=== PATIENT | female | born 1960 | race Caucasian/White ===

== ENCOUNTER 2016-06-15 09:25 | Outpatient (CLI) | payer OTHER ==
[2016-06-15] VITALS (9 sets, daily range): BP systolic 99–137; BP diastolic 61–85
[~2016-06-15] VITALS: Ht 162.6 cm; Wt 107.4 kg
--- NOTE | ~2016-06-15 | EKG ---
[place] [address] [facility] [place] [employer] [place] [address] ELECTROCARDIOGRAM REPORT Name: IDALIA NUÑEZ Room #: REG CLI [facility]#: [id number] Admission: 06/15/16 Attend Phys: Solis Reynoso MD Discharge: Date of : 62 Report #: [id number] THIS REPORT FOR: //name// [facility] Test Date: 2016-06-15 Test Time: 09:45:21 Pat Name: IDALIA NUÑEZ Department: Room: Gender: F Feather Shaper: Dre MOSCOSO : 1960 Requested By: Solis Reynoso Order Number: [id number] MD: Bud Coughlin Measurements Intervals Erhard Rate: 71 P: 51 NJ: 150 QRS: -7 QRSD: 104 T: 40 QT: 402 QTc: 437 Interpretive Statements Sinus rhythm Poor R-wave progression No previous ECG available for comparison Electronically Signed On 06-15-2016 10:24:20 TABLE SETTER by Bud Coughlin [email or web address] <ELECTRONICALLY SIGNED> By: Bud Coughlin MD, [facility] 06/15/16 1024 0945 0945 Bud Coughlin MD, FAC /EPI
--- NOTE | ~2016-06-15 | CATHLAB ---
[facility] [employer] [address] INVASIVE PROCEDURE REPORT Name: IDALIA NUÑEZ Room #: 200-I [facility]#: [id number] Admission: 06/15/16 Attend Phys: Solis Reynoso MD Discharge: Date of : 62 Date of Service: 06/15/16 1331 Report #: [id number] THIS REPORT FOR: //name// CC: Azeem Reynoso DATE OF SERVICE: 06/15/2016 INDICATIONS: Unstable angina/dyspnea. Full risks, benefits and alternatives of cardiac catheterization were explained to the patient. All questions were answered. Informed consent was obtained. The right groin area was prepped and draped in a sterile manner. Lidocaine was given subcutaneously. A 4-Honduran sheath was inserted into the right femoral artery via modified Seldinger technique. A 7-Honduran sheath was inserted into the right femoral vein via modified Seldinger technique. RIGHT HEART PRESSURES: Please see the cardiovascular lab director computed sheet for full details. 1. The mean right atrial pressure is 10, the RV pressure is 39/12, the PA pressure is approximately 40/17 mmHg. 2. The mean capillary wedge pressure is 13. 3. Cardiac output via Eda is 3.59. LEFT HEART CARDIAC CATHETERIZATION: CORONARY ANATOMY: 1. The left main is a large caliber vessel, with no flow-limiting lesions. 2. The LAD is a moderate sized caliber vessel, traveled down the anterior wall and wraps around the apex. In the proximal segment, there is a moderate stenosis 50-60%. 3. Within the mid segment of the LAD, there is mild diffuse disease, 30%. 4. The left circumflex artery is a moderate size caliber vessel, giving off 1 moderate size obtuse marginal artery. There is mild disease within the mid segment of the left circumflex artery, 30%. 5. The RCA is a dominant vessel. There is a total occlusion of the RCA in the proximal segment. 6. A left ventriculogram was performed revealing normal LV systolic function, ejection fraction of 60%. The LVEDP is approximately 14 mmHg. There is no gradient across the outflow tract. CORONARY ANGIOPLASTY: A 6-Honduran was used and the patient was given Angiomax. Attempts at crossing the total proximal RCA occlusion was unsuccessful. A Luge wire and a Whisper wire was used. An over the wire balloon system was used as backup. At the end of the procedure, coronary injections revealed no change in the appearance of the [place] RCA. The patient tolerated the procedure without any complications. [address] [address] INVASIVE PROCEDURE REPORT Name: IDALIA NUÑEZ Room #: 200-I [facility]#: [id number] Admission: 06/15/16 Attend Phys: Solis Reynoso MD Discharge: Date of : 62 Date of Service: 06/15/16 1331 Report #: [id number] IMPRESSION: 1. 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 Unsuccessful angioplasty secondary to inability to cross the lesion with a wire. 2. Moderate disease in the proximal left anterior descending. 3. Normal left ventricular systolic function. 4. Right-sided heart pressures as described above. 5. Recommend revascularization of the right coronary artery. <ELECTRONICALLY SIGNED> By: Solis Reynoso MD 06/16/16 0833 1331 1652 Solis Reynoso MD /nt
--- NOTE | ~2016-06-15 | D ---
[facility] [place] [address] DISCHARGE SUMMARY Name: IDALIA NUÑEZ Room #: DEP [facility]#: [id number] Admission: 06/15/16 Attend Phys: Solis Reynoso MD Discharge: 06/16/16 Date of : 62 Report #: [id number] THIS REPORT FOR: //name// CC: Azeem Reynoso DATE OF SERVICE: 06/16/2016 FINAL DIAGNOSES: 1. Angina/coronary artery disease. 2. Hypertension. 3. Mild chronic obstructive pulmonary disease/bronchitis. 4. Hypercholesterolemia. 5. Gastroesophageal reflux disease. 6. Edema. HOSPITAL COURSE: Please see the original H and P for full details. The patient presented with dyspnea and chest discomfort with exertion. An echocardiogram at [facility] revealed normal LV systolic function and increased pulmonary artery pressures. She underwent an elective cardiac catheterization. The right heart cardiac catheterization revealed mild elevation in pulmonary artery pressures and no evidence for a shunt. She was found to have severe coronary artery disease. There was a total occlusion of the dominant RCA. After the occlusion, the RCA is filled via collateral circulation. There is a [id number] stenosis in the proximal LAD. Her LV systolic function is preserved. Angioplasty was unsuccessful secondary to inability to cross the total occlusion with a wire. The patient has remained hemodynamically stable overnight. Both the artery and ventricular sheaths were pulled manually yesterday. She has not had any issues with bleeding. The plan is to refer the patient to a different facility for percutaneous approach of the chronic total occlusion, possibly retrograde. Final disposition, she will continue with lisinopril 20 mg daily, omeprazole 40 mg daily, Naprosyn, Zoloft, lovastatin 20 mg daily, Xanax as needed, Lasix 40 mg daily, inhalers and aspirin once a day. She is also given instructions for followup appointment. <ELECTRONICALLY SIGNED> By: Solis Reynoso MD 06/17/16 0758 0841 0855 Solis Reynoso MD /nt
[2016-06-15] MEDS ORDERED: LISINOPRIL20 MG PO (09:41)
[2016-06-15] MEDS ORDERED: OMEPRAZOLE 20 M20 MG PO (09:41)
[2016-06-15] MEDS ORDERED: NAPROSYN500 MG PO (09:43)
[2016-06-15] MEDS ORDERED: ZOLOFT50 MG PO (09:43)
[2016-06-15] MEDS ORDERED: LOVASTATIN 20 M20 MG PO (09:44)
[2016-06-15] MEDS ORDERED: LASIX 40 MG TAB40 M2 PO (09:45)
[2016-06-15] MEDS ORDERED: PERCOCET 10-321 EACH PO (09:45)
[2016-06-15] MEDS ORDERED: XANAX1 MG PO (09:45)
[2016-06-15] MEDS ORDERED: BREO ELLIPTA 11 EACH IH (09:50)
[2016-06-15] MEDS ORDERED: CLARITIN-D 12 H1 TA1 PO (09:51)
[2016-06-15] MEDS ORDERED: ANTIVERT25 MG PO (09:51)
[2016-06-15] MEDS ORDERED: AMBIEN 5 MG TABL5 M1 PO (09:52)
[2016-06-15] MEDS ORDERED: LIDODERM 5%1 PATC1 TRANSDERM (09:52)
[2016-06-15] MEDS ORDERED: PROAIR HFA8.5 GM INH (09:55)
[2016-06-15 10:02] LABS: HEMATOCRIT 41.1 % (37.0-47.0); HEMOGLOBIN 14.1 gm/dL (12.0-15.0); MCH 31.1 pg (26.0-34.0); MCHC 34.4 % (28.0-37.0); MCV 90.4 fL (80.0-100.0); RBC 4.55 mil/uL (4.20-5.00); RDW 13.9 % (10.5-14.5); WBC 10.1 thou/uL (4.0-11.0)
[2016-06-15 10:09] LABS: CALCIUM 9.3 mg/dL (8.5-10.1); POTASSIUM 3.6 mmol/L (3.5-5.1)
[2016-06-15 11:52] LABS: ABG SAMPLE TYPE ARTERIAL; BE(vivo) -1.3 mmol/L (-2 to +3); HCO3 22.9 mmol/L (22.0-26.0); LACTATE 0.98 mmol/L (0.5-2.0); O2(CT) 17.9 mL/dL (15.0-23.0); O2Hb 92.1 % (92.0-98.0); PCO2 36.8 mmHg (35.0-45.0); PO2 71.9 mmHg (80.0-100.0); pH 7.412 (7.360-7.450); sO2 94.7 % (92.0-98.0)
[2016-06-15 11:54] LABS: ABG SAMPLE TYPE ARTERIAL; HCO3 24.1 mmol/L (22.0-26.0); LACTATE 0.98 mmol/L (0.5-2.0); O2(CT) 12.9 mL/dL (15.0-23.0); PCO2 41.5 mmHg (35.0-45.0); pH 7.382 (7.360-7.450); sO2 65.4 % (92.0-98.0); tCO2 25.4 mmol/L (24.0-30.0)
[2016-06-15 11:56] LABS: FIO2 21 %; STICK SITE AO
[2016-06-15 11:56] LABS: FIO2 21 %; PO2 34.6 mmHg (80.0-100.0); STICK SITE PA
[2016-06-16 03:04] VITALS: BP 125/75
[2016-06-16 03:33] VITALS: BP 124/74
[2016-06-16 03:33] LABS: HEMATOCRIT 36.4 % (37.0-47.0); HEMOGLOBIN 12.5 gm/dL (12.0-15.0); MCH 31.6 pg (26.0-34.0); MCHC 34.2 % (28.0-37.0); MCV 92.5 fL (80.0-100.0); RBC 3.94 mil/uL (4.20-5.00); RDW 13.9 % (10.5-14.5); WBC 8.4 thou/uL (4.0-11.0)
[2016-06-16 03:39] LABS: CALCIUM 8.8 mg/dL (8.5-10.1); CREATININE 0.8 mg/dL (0.6-1.3); POTASSIUM 3.6 mmol/L (3.5-5.1)
[2016-06-16 07:15] VITALS: BP 122/67
[2016-06-16] MEDS ORDERED: ASPIR 8181 MG PO (08:35)
[2016-06-16 09:56] VITALS: BP 122/67
[2016-06-16 17:07] VITALS: BP 122/67
[2016-06-25] MEDS ORDERED: EFFIENT10 MG PO (10:02)
[2016-06-26] MEDS ORDERED: ATORVASTATIN CA40 MG PO (08:18)
[2016-06-26] MEDS ORDERED: METOPROLOL SUCC25 M1 PO (08:18)
== END 2016-06-16 10:34 | disposition home or self-care (01) ==
LOC: CATH 09:25 → 2N 15:23 → CATH 06-16 10:34
PROVIDERS: Internal Medicine Cardiovascular Disease
DX: I20.0 Unstable angina (principal); Z90.49 Acquired absence of other specified parts of digestive tract; J45.909 Unspecified asthma, uncomplicated; I27.2 Other secondary pulmonary hypertension; I10 Essential (primary) hypertension; K21.9 Gastro-esophageal reflux disease without esophagitis; M17.9 Osteoarthritis of knee, unspecified; Z86.14 Personal history of Methicillin resistant Staphylococcus aureus infection; F17.210 Nicotine dependence, cigarettes, uncomplicated; I48.91 Unspecified atrial fibrillation
CPT/HCPCS: 10081

== ENCOUNTER → 2017-08-23 | Outpatient (CLI) | payer OTHER ==
[~2017-08-23] MED LIST: AMBIEN 5 MG TABL5 M1 PO; ANTIVERT25 MG PO; ASPIR 8181 MG PO; ATORVASTATIN CA40 MG PO; BREO ELLIPTA 11 EACH IH; CLARITIN-D 12 H1 TA1 PO; EFFIENT10 MG PO; LASIX 40 MG TAB40 M2 PO; LIDODERM 5%1 PATC1 TRANSDERM; LISINOPRIL20 MG PO; LOVASTATIN 20 M20 MG PO; METOPROLOL SUCC25 M1 PO; NAPROSYN500 MG PO; OMEPRAZOLE 20 M20 MG PO; PERCOCET 10-321 EACH PO; PROAIR HFA8.5 GM INH; XANAX1 MG PO; ZOLOFT50 MG PO
--- NOTE | ~2017-08-23 | 2DMMODE ---
[facility] [address] [place] [address] 2 D/M-MODE ECHOCARDIOGRAM Name: IDALIA NUÑEZ Room #: REG [facility]#: [id number] Admission: 08/23/17 Attend Phys: Solis Reynoso MD Discharge: Date of : 62 Date of Service: 08/23/17 1528 Report #: [id number] THIS REPORT FOR: //name// APPROVED REPORT Study performed: 08/23/2017 14:17:14 EXAM: Comprehensive 2D, Doppler, and color-flow Echocardiogram Patient Location: Out-Patient Room #: Echo lab Status: routine BSA: 2.15 HR: 72 bpm BP: 104/64 mmHg Other Information Study Quality: Adequate Indications CAD Hypertension/HDD 2D Dimensions RVDd: 41.74 mm LVEF(%): 64.54 (>50%) IVSd: 10.82 (7-11mm) LVOT Diam: 23.01 (18-24mm) LVDd: 47.45 mm PWd: 10.90 (7-11mm) Ascending Ao: 28.55 (22-36mm) LVDs: 30.73 (25-40mm) Aortic Root: 30.43 mm IVC: 23.00 mm Salmeron's LVEF: 64.54 % Volumes Left Atrial Volume (Systole) Single Plane 4CH: 54.33 mL Single Plane 2CH: 33.72 mL LA ESV Index: 21.00 mL/m2 Aortic Valve AoV Peak Fausto.: 1.56 m/s AO Peak Gr.: 9.67 mmHg LVOT Max P.27 mmHg LVOT Max V: 1.03 m/s AILYN Vmax: 2.76 cm2 Mitral Valve E/A Ratio: 1.1 MV Decel. Time: 202.28 ms [facility] [place] [address] 2 D/M-MODE ECHOCARDIOGRAM Name: NUÑEZ,SHARON JO Room #: REG [facility]#: [id number] Admission: 08/23/17 Attend Phys: Solis Reynoso MD Discharge: Date of : 62 Date of Service: 08/23/17 1528 Report #: [id number] MV E Max Fausto.: 1.23 m/s MV A Afusto.: 1.08 m/s MV PHT: 58.66 ms IVRT: 78.43 ms Pulmonary Valve PV Peak Fausto.: 0.83 m/s PV Peak Gr.: 2.78 mmHg Pulmonary Vein P Vein S: 0.59 m/s P Vein A: 0.32 m/s P Vein D: 0.37 m/s P Vein A Dur.: 156.9 msec P Vein S/D Ratio: 1.59 Tricuspid Valve TR Peak Fausto.: 3.21 m/s TR Peak Gr.: 41.30 mmHg PA Pressure: 51.00 mmHg Left Ventricle The left ventricle is normal size. There is normal LV segmental wall motion. There is normal left ventricular wall thickness. The left ventricular systolic function is normal. The left ventricular ejection fraction is within the normal range. LVEF is 55-60%. Right Ventricle The right ventricle is normal size. The right ventricular systolic function is normal. Atria The left atrium size is normal. The right atrium size is normal. Aortic Valve The aortic valve is normal in structure. No aortic regurgitation is present. There is no aortic valvular stenosis. Mitral Valve The mitral valve is normal in structure. Trace mitral regurgitation. No evidence of mitral valve stenosis. Tricuspid Valve The tricuspid valve is normal in structure. There is trace tricuspid regurgitation. Estimated PAP 45 mmHg. There is moderate pulmonary hypertension. Pulmonic Valve [address] [address] 2 D/M-MODE ECHOCARDIOGRAM Name: IDALIA NUÑEZ Room #: REG CL [facility]#: [id number] Admission: 08/23/17 Attend Phys: Solis Reynoso MD Discharge: Date of : 62 Date of Service: 08/23/17 1528 Report #: [id number] The pulmonary valve is normal in structure. Trace pulmonic regurgitation. Great Vessels The aortic root is normal in size. IVC is dilated and collapses >50% with inspiration. Pericardium There is no pericardial effusion. <Conclusion> The left ventricle is normal size. There is normal left ventricular wall thickness. The left ventricular systolic function is normal. The right ventricle is normal size. The left atrium size is normal. The aortic valve is normal in structure. Trace mitral regurgitation. There is trace tricuspid regurgitation. Estimated PAP 45 mmHg. <ELECTRONICALLY SIGNED> By: Solis Reynoso MD 08/23/17 1528 1528 1528 Solis Reynoso MD /INF
== END ==
LOC: CV 11:21
DX: I25.10 Atherosclerotic heart disease of native coronary artery without angina pectoris (principal); I10 Essential (primary) hypertension

== ENCOUNTER → 2018-05-25 | Outpatient (CLI) | payer OTHER | LOC: HYPER 05-16 08:59 | DX: T81.89XA Other complications of procedures, not elsewhere classified, initial encounter (principal); E78.5 Hyperlipidemia, unspecified; I25.10 Atherosclerotic heart disease of native coronary artery without angina pectoris; K21.9 Gastro-esophageal reflux disease without esophagitis; M19.90 Unspecified osteoarthritis, unspecified site; E66.01 Morbid (severe) obesity due to excess calories; G89.29 Other chronic pain; M54.9 Dorsalgia, unspecified; J44.9 Chronic obstructive pulmonary disease, unspecified; F41.9 Anxiety disorder, unspecified; F32.9 Major depressive disorder, single episode, unspecified; F17.290 Nicotine dependence, other tobacco product, uncomplicated; Z68.41 Body mass index [BMI] 40.0-44.9, adult; Y92.89 Other specified places as the place of occurrence of the external cause; Y83.8 Other surgical procedures as the cause of abnormal reaction of the patient, or of later complication, without mention of misadventure at the time of the procedure ==

== ENCOUNTER → 2019-12-12 | Outpatient (CLI) | payer OTHER | LOC: SJCVCIMAG 11-30 09:04 | PROVIDERS: ATTEND Internal Medicine Cardiovascular Disease | DX: I34.0 Nonrheumatic mitral (valve) insufficiency (principal); R00.1 Bradycardia, unspecified; I25.10 Atherosclerotic heart disease of native coronary artery without angina pectoris; I10 Essential (primary) hypertension; E78.5 Hyperlipidemia, unspecified; Z72.0 Tobacco use; Z79.899 Other long term (current) drug therapy ==

== ENCOUNTER → 2020-11-18 | Outpatient (CLI) | payer OTHER | LOC: SJCVCIMAG 08:16 | PROVIDERS: ATTEND Internal Medicine Cardiovascular Disease | DX: I49.3 Ventricular premature depolarization (principal); I25.89 Other forms of chronic ischemic heart disease; I25.10 Atherosclerotic heart disease of native coronary artery without angina pectoris; I10 Essential (primary) hypertension; R06.00 Dyspnea, unspecified; R51.9 Headache, unspecified; F41.9 Anxiety disorder, unspecified; E78.5 Hyperlipidemia, unspecified; J44.9 Chronic obstructive pulmonary disease, unspecified; K21.9 Gastro-esophageal reflux disease without esophagitis; E78.00 Pure hypercholesterolemia, unspecified; M19.90 Unspecified osteoarthritis, unspecified site; F17.200 Nicotine dependence, unspecified, uncomplicated; Z95.5 Presence of coronary angioplasty implant and graft; Z90.49 Acquired absence of other specified parts of digestive tract; Z79.82 Long term (current) use of aspirin; Z79.899 Other long term (current) drug therapy; Z82.49 Family history of ischemic heart disease and other diseases of the circulatory system ==

== ENCOUNTER → 2020-12-11 | Outpatient (CLI) | payer OTHER | LOC: SJCVC 14:29 | PROVIDERS: ATTEND Internal Medicine Cardiovascular Disease | DX: I25.10 Atherosclerotic heart disease of native coronary artery without angina pectoris (principal); I10 Essential (primary) hypertension; E78.5 Hyperlipidemia, unspecified; R00.2 Palpitations; R60.9 Edema, unspecified; J44.9 Chronic obstructive pulmonary disease, unspecified; E78.00 Pure hypercholesterolemia, unspecified; K21.9 Gastro-esophageal reflux disease without esophagitis; M19.90 Unspecified osteoarthritis, unspecified site; F17.200 Nicotine dependence, unspecified, uncomplicated; Z90.49 Acquired absence of other specified parts of digestive tract; Z95.5 Presence of coronary angioplasty implant and graft; Z79.82 Long term (current) use of aspirin; Z79.899 Other long term (current) drug therapy; Z82.49 Family history of ischemic heart disease and other diseases of the circulatory system ==

== ENCOUNTER → 2021-03-27 | Outpatient (CLI) | payer OTHER | LOC: SJCVC 13:13 | PROVIDERS: ATTEND Internal Medicine Cardiovascular Disease | DX: R00.1 Bradycardia, unspecified (principal); I25.10 Atherosclerotic heart disease of native coronary artery without angina pectoris; I10 Essential (primary) hypertension; E78.5 Hyperlipidemia, unspecified; R00.2 Palpitations; R60.9 Edema, unspecified; J44.9 Chronic obstructive pulmonary disease, unspecified; K21.9 Gastro-esophageal reflux disease without esophagitis; M19.90 Unspecified osteoarthritis, unspecified site; F17.200 Nicotine dependence, unspecified, uncomplicated; Z79.82 Long term (current) use of aspirin; Z79.899 Other long term (current) drug therapy ==